=== PATIENT | male | born 1970 | race Caucasian/White ===

== ENCOUNTER 2019-01-29 11:35 | Inpatient (IN) | payer MEDICARE ==
[2019-01-29] VITALS (8 sets, daily range): BP systolic 128–150; BP diastolic 69–79
[~2019-01-29] VITALS: Ht 170.2 cm; Wt 93.0 kg
[~2019-01-29 11:35] MED LIST: CEFI200S PO; CEFI200T PO; FENO43CA PO; IBUP200T44 PO; LISI10TA2 PO; PRED5TAB PO; SILD50TA PO; [UNRECOGNIZED DRUG - CODE] MC
[2019-01-29] MEDS ORDERED: MORPHINE SULFATE 4 MG/ML VIAL. IV ONE (12:15)
[2019-01-29] MEDS ORDERED: ONDANSETRON PF 4 MG/2 ML VIAL. IV ONE (12:15)
[2019-01-29] MEDS ORDERED: IV NORMAL SALINE 500ML BAG 500 ML IV ONE (12:15)
--- NOTE | 2019-01-29 12:21 | PHYS DOC ---
Past Medical History Past Medical History: Hypertension Additional Past Medical Histor: UMBILICAL HERNIA Past Surgical History: Hip Replacement Alcohol Use: Heavy Additional Information: SOBER SINCE Drug Use: None Adult General Chief Complaint Chief Complaint: PAIN CONTROL HPI HPI Patient is a 48 year old male who presents with abdominal pain has been ongoing for 4 hours. The patient states she's had umbilical hernia that's been ongoing for over a year. However this morning his hernia was unable be compressible in. Rates his pain 7 out of 10 in severity and sharp. Patient last had something to drink or eat around 7:00 this morning when he had coffee and tea. Review of Systems Review of Systems Constitutional: Denies fever or chills [] Eyes: Denies change in visual acuity, redness, or eye pain [] HENT: Denies nasal congestion or sore throat [] Respiratory: Denies cough or shortness of breath [] Cardiovascular: No additional information not addressed in HPI [] GI: Reports abdominal pain, nausea, Denies vomiting, bloody stools or diarrhea [] : Denies dysuria or hematuria [] Musculoskeletal: Denies back pain or joint pain [] Integument: Denies rash or skin lesions [] Neurologic: Denies headache, focal weakness or sensory changes [] Endocrine: Denies polyuria or polydipsia [] Complete systems were reviewed and found to be within normal limits, except as documented in this note. Current Medications Current Medications Current Medications Medications (Trade) Dose Ordered Sig/She Start Time Stop Time Status Last Admin Dose Admin Fentanyl Citrate (Fentanyl 2ml Vial) 50 mcg PRN Q5MIN PRN 01/29/19 12:45 01/30/19 12:44 Hydromorphone HCl (Dilaudid) 0.5 mg PRN Q10MIN PRN 01/29/19 12:45 01/30/19 12:44 Lidocaine HCl (Xylocaine-Mpf 1% 2ml Vial) 2 ml PRN 1X PRN 01/29/19 12:45 01/30/19 12:44 Morphine Sulfate (Morphine Sulfate) 1 mg PRN Q10MIN PRN 01/29/19 12:45 01/30/19 12:44 Ondansetron HCl (Zofran) 4 mg PRN Q6HRS PRN 01/29/19 12:45 01/30/19 12:44 Prochlorperazine Edisylate (Compazine) 5 mg PACU PRN PRN 01/29/19 12:45 01/30/19 12:44 Ringer's Solution 1,000 ml @ 30 mls/hr Q24H 01/29/19 12:44 01/30/19 00:43 Sodium Chloride 500 ml @ 500 mls/hr 1X ONCE 01/29/19 12:15 01/29/19 13:14 01/29/19 12:24 500 MLS/HR Allergies Allergies Allergies Coded Allergies Type Severity Reaction Last Updated Verified No Known Drug Allergies 08/09/13 No Physical Exam Physical Exam Constitutional: Well developed, well nourished, appears in pain. HENT: Normocephalic, atraumatic, bilateral external ears normal, oropharynx moist, no oral exudates, nose normal. [] Eyes: PERRLA, EOMI, conjunctiva normal, no discharge. [] Neck: Normal range of motion, no tenderness, supple, no stridor. [] Cardiovascular:Heart rate regular rhythm, no murmur [] Lungs & Thorax: Bilateral breath sounds clear to auscultation [] Abdomen: Bowel sounds normal, soft, umbilical hernia that is not compressible, Skin: Warm, dry, no erythema, no rash. [] Back: No tenderness, no CVA tenderness. [] Extremities: No tenderness, no cyanosis, no clubbing, ROM intact, no edema. [] Neurologic: Alert and oriented X 3, normal motor function, normal sensory function, no focal deficits noted. [] Psychologic: Affect normal, judgement normal, mood normal. [] Current Patient Data Vital Signs Vital Signs Date Time Temp Pulse Resp B/P (MAP) Pulse Ox O2 Delivery O2 Flow Rate FiO2 01/29/19 12:43 70 16 100 01/29/19 11:43 98.1 169/87 (114) Room Air 98.1 Lab Values Laboratory Tests Test 01/29/19 12:03 White Blood Count 10.8 x10^3/uL (4.0-11.0) Red Blood Count 3.94 x10^6/uL (4.30-5.70) L Hemoglobin 13.7 g/dL (13.0-17.5) Hematocrit 39.6 % (39.0-53.0) Mean Corpuscular Volume 101 fL (79-100) H Mean Corpuscular Hemoglobin 35 pg (25-35) Mean Corpuscular Hemoglobin Concent 35 g/dL (31-37) Red Cell Distribution Width 15.0 % (11.5-14.5) H Platelet Count 150 x10^3/uL (140-400) Neutrophils (%) (Auto) 79 % (31-73) H Lymphocytes (%) (Auto) 15 % (24-48) L Monocytes (%) (Auto) 4 % (0-9) Eosinophils (%) (Auto) 2 % (0-3) Basophils (%) (Auto) 1 % (0-3) Neutrophils # (Auto) 8.5 x10^3/uL (1.8-7.7) H Lymphocytes # (Auto) 1.6 x10^3/uL (1.0-4.8) Monocytes # (Auto) 0.4 x10^3/uL (0.0-1.1) Eosinophils # (Auto) 0.2 x10^3/uL (0.0-0.7) Basophils # (Auto) 0.1 x10^3/uL (0.0-0.2) Sodium Level 140 mmol/L (136-145) Potassium Level 3.7 mmol/L (3.5-5.1) Chloride Level 104 mmol/L (98-107) Carbon Dioxide Level 25 mmol/L (21-32) Anion Gap 11 (6-14) Blood Urea Nitrogen 6 mg/dL (8-26) L Creatinine 0.8 mg/dL (0.7-1.3) Estimated GFR (Cockcroft-Gault) 103.2 BUN/Creatinine Ratio 8 (6-20) Glucose Level 112 mg/dL (70-99) H Calcium Level 9.9 mg/dL (8.5-10.1) Total Bilirubin 0.5 mg/dL (0.2-1.0) Aspartate Amino Transferase (AST) 17 U/L (15-37) Alanine Aminotransferase (ALT) 25 U/L (16-63) Alkaline Phosphatase 119 U/L (46-116) H Total Protein 7.9 g/dL (6.4-8.2) Albumin 4.3 g/dL (3.4-5.0) Albumin/Globulin Ratio 1.2 (1.0-1.7) Lipase 91 U/L (73-393) Laboratory Tests 01/29/19 12:03 Laboratory Tests 01/29/19 12:03 EKG EKG EKG interpreted by Dr. Mari Lambert with rate of 65, No STEMI.[] Radiology/Procedures Radiology/Procedures [] Course & Med Decision Making Course & Med Decision Making Pertinent Labs and Imaging studies reviewed. (See chart for details) Concern that his umbilical hernia is strangulated. Paged general surgery and ordered labs and supportive care. Discussed with Dr. Little who came to bedside to see patient and agrees that it is a strangulated hernia. He will prepare to take patient to surgery. Discussed with Dr. Ferreira who accepts admission. Labs are unremarkable. Dragon Disclaimer Dragon Disclaimer This electronic medical record was generated, in whole or in part, using a voice recognition dictation system. Departure Departure Impression: Primary Impression: Strangulated umbilical hernia Disposition: ADMITTED INPATIENT Admitting Physician: INDU Condition: STABLE Referrals: UNKNOWN PCP NAME (PCP) AMEENA ALY APRN Jan 29, 2019 12:21
[2019-01-29 12:26] LABS: BASO # 0.1 x10^3/uL (0.0-0.2); BASO % 1 % (0-3); EOS # 0.2 x10^3/uL (0.0-0.7); EOS % 2 % (0-3); HEMATOCRIT 39.6 % (39.0-53.0); HEMOGLOBIN 13.7 g/dL (13.0-17.5); LYMPH # 1.6 x10^3/uL (1.0-4.8); LYMPH % 15 % (24-48); MEAN CORPUSCULAR HEMOGLOBIN 35 pg (25-35); MEAN CORPUSCULAR HGB CONC 35 g/dL (31-37); MEAN CORPUSCULAR VOLUME 101 fL (79-100); MONO # 0.4 x10^3/uL (0.0-1.1); MONO % 4 % (0-9); NEUT # 8.5 x10^3/uL (1.8-7.7); NEUT % 79 % (31-73); PLATELET COUNT 150 x10^3/uL (140-400); RED BLOOD COUNT 3.94 x10^6/uL (4.30-5.70); WHITE BLOOD COUNT 10.8 x10^3/uL (4.0-11.0)
[2019-01-29] MEDS ORDERED: MORPHINE SULFATE 4 MG/ML VIAL. IV PRN (12:30)
[2019-01-29 12:36] LABS: CALCIUM 9.9 mg/dL (8.5-10.1); CREATININE 0.8 mg/dL (0.7-1.3); GFR 103.2; POTASSIUM 3.7 mmol/L (3.5-5.1)
[2019-01-29 12:43] LABS: ALBUMIN 4.3 g/dL (3.4-5.0); ALBUMIN/GLOBULIN RATIO 1.2 (1.0-1.7); TOTAL BILIRUBIN 0.5 mg/dL (0.2-1.0); TOTAL PROTEIN 7.9 g/dL (6.4-8.2)
[2019-01-29] MEDS ORDERED: IV RINGERS,LACTATED 1000ML 1,000 ML IV SCH (12:44)
[2019-01-29] MEDS ORDERED: HYDROmorphone 2 MG/ML VIAL IV PRN (12:45)
[2019-01-29] MEDS ORDERED: LIDOCAINE 1% PF 2 ML VIAL. ID PRN (12:45)
[2019-01-29] MEDS ORDERED: PROCHLORPERAZINE 10 MG/2 ML VIAL. IV PRN (12:45)
[2019-01-29] MEDS ORDERED: MORPHINE SULFATE 2 MG/ML VIAL. IV PRN (12:45)
[2019-01-29] MEDS ORDERED: ONDANSETRON PF 4 MG/2 ML VIAL. IV PRN (12:45)
[2019-01-29] MEDS ORDERED: fentaNYL PF VIAL 100 MCG/2 ML VIAL IV PRN ×2 (12:45)
--- NOTE | 2019-01-29 12:55 | PDOC2 ---
CONSULT Date of Consult Date of Consult DATE: 01/29/19 TIME: 12:51 Reason for Consult Reason for Consult: Abdominal pain Referring Physician Referring Physician: Hanna Identification/Chief Complaint Chief Complaint Abdominal pain and umbilical hernia Source Source: Patient History of Present Illness Reason for Visit: 48-year-old male with a umbilical hernia that's been watched for over year secondary to his alcohol abuse which is been in rehabilitation for the last year last alcoholic drink was April 2018. About 5 hours ago he developed severe abd ominal pain with nausea and a bulge at the umbilical hernia which would not reduce as it has in the past. Pain became more severe that's why came to the emergency department. Denies any fevers chills last meal was last night. He had undergone a hip surgery in October 2018 without any postoperative difficulties or anesthesia difficulties. Past Medical History Cardiovascular: HTN Pulmonary: No pertinent hx GI: No pertinent hx Heme/Onc: No pertinent hx Hepatobiliary: Cirrhosis Psych: Addictions Rheumatologic: No pertinent hx Infectious disease: No pertinent hx ENT: No pertinent hx Renal/: No pertinent hx Endocrine: No pertinent hx Dermatology: No pertinent hx Past Surgical History Past Surgical History: Other (hip surgery) Family History Family History: No Significant Social History ALCOHOL: heavy (last alcoholic drink was April 2018) Current Problem List Problem List Problems Medical Problems: (1) Strangulated umbilical hernia Status: Acute Current Medications Current Medications Current Medications Morphine Sulfate (Morphine Sulfate) 8 mg 1X ONCE IV Last administered on 01/29/19at 12:24; Start 01/29/19 at 12:15; Stop 01/29/19 at 12:16; Status DC Ondansetron HCl (Zofran) 4 mg 1X ONCE IV Last administered on 01/29/19at 12:23; Start 01/29/19 at 12:15; Stop 01/29/19 at 12:16; Status DC Sodium Chloride 500 ml @ 500 mls/hr 1X ONCE IV Last administered on 01/29/19at 12:24; Start 01/29/19 at 12:15; Stop 01/29/19 at 13:14 Morphine Sulfate (Morphine Sulfate) 4 mg PRN Q2HR PRN IV PAIN; Start 01/29/19 at 12:30; Stop 01/30/19 at 12:29 Ondansetron HCl (Zofran) 4 mg PRN Q6HRS PRN IV NAUSEA/VOMITING; Start 01/29/19 at 12:45; Stop 01/30/19 at 12:44 Fentanyl Citrate (Fentanyl 2ml Vial) 25 mcg PRN Q5MIN PRN IV MILD PAIN 1-3; Start 01/29/19 at 12:45; Stop 01/30/19 at 12:44 Fentanyl Citrate (Fentanyl 2ml Vial) 50 mcg PRN Q5MIN PRN IV MODERATE TO SEVERE PAIN; Start 01/29/19 at 12:45; Stop 01/30/19 at 12:44 Morphine Sulfate (Morphine Sulfate) 1 mg PRN Q10MIN PRN IV SEVERE PAIN 7-10; Start 01/29/19 at 12:45; Stop 01/30/19 at 12:44 Ringer's Solution 1,000 ml @ 30 mls/hr Q24H IV ; Start 01/29/19 at 12:44; Stop 01/30/19 at 00:43 Lidocaine HCl (Xylocaine-Mpf 1% 2ml Vial) 2 ml PRN 1X PRN ID PRIOR TO IV START; Start 01/29/19 at 12:45; Stop 01/30/19 at 12:44 Hydromorphone HCl (Dilaudid) 0.5 mg PRN Q10MIN PRN IV SEV PAIN, Second choice; Start 01/29/19 at 12:45; Stop 01/30/19 at 12:44 Prochlorperazine Edisylate (Compazine) 5 mg PACU PRN PRN IV NAUSEA, MRX1; Start 01/29/19 at 12:45; Stop 01/30/19 at 12:44 Active Scripts Active Reported Viagra (Sildenafil Citrate) 50 Mg Tablet 50 Mg PO Motrin Ib (Ibuprofen) 200 Mg Tablet 200 Mg PO Prednisone 5 Mg Tablet 5 Mg PO Suprax (Cefixime) 200 Mg/5 Ml Susp.recon 200 Mg PO Suprax (Cefixime) 200 Mg Tab.chew 200 Mg PO Clindamycin Hcl 100 Gm Powder 100 Gm MC Lisinopril 10 Mg Tablet 10 Mg PO Fenofibrate (Fenofibrate,Micronized) 43 Mg Capsule 43 Mg PO Allergies Allergies: Coded Allergies: No Known Drug Allergies (Unverified , 08/09/13) ROS Gastrointestinal: Yes Nausea, Yes Abdominal Pain Physical Exam General: Alert, Oriented X3, Cooperative, moderate distress HEENT: Atraumatic, PERRLA, EOMI Lungs: Clear to auscultation, Normal air movement Heart: Regular rate, No murmurs Abdomen: Soft, Other (tender to palpation around the umbilicus is a large umbilical hernia with thinning of the skin non-reducible hypoactive bowel sounds) Extremities: No edema Skin: No significant lesion Neuro: Normal speech Psych/Mental Status: Mental status NL Vitals VITALS Vital Signs Date Time Temp Pulse Resp B/P (MAP) Pulse Ox O2 Delivery O2 Flow Rate FiO2 01/29/19 12:43 70 16 100 01/29/19 11:43 98.1 169/87 (114) Room Air 98.1 Labs Labs Laboratory Tests Test 01/29/19 12:03 White Blood Count 10.8 x10^3/uL (4.0-11.0) Red Blood Count 3.94 x10^6/uL (4.30-5.70) Hemoglobin 13.7 g/dL (13.0-17.5) Hematocrit 39.6 % (39.0-53.0) Mean Corpuscular Volume 101 fL (79-100) Mean Corpuscular Hemoglobin 35 pg (25-35) Mean Corpuscular Hemoglobin Concent 35 g/dL (31-37) Red Cell Distribution Width 15.0 % (11.5-14.5) Platelet Count 150 x10^3/uL (140-400) Neutrophils (%) (Auto) 79 % (31-73) Lymphocytes (%) (Auto) 15 % (24-48) Monocytes (%) (Auto) 4 % (0-9) Eosinophils (%) (Auto) 2 % (0-3) Basophils (%) (Auto) 1 % (0-3) Neutrophils # (Auto) 8.5 x10^3/uL (1.8-7.7) Lymphocytes # (Auto) 1.6 x10^3/uL (1.0-4.8) Monocytes # (Auto) 0.4 x10^3/uL (0.0-1.1) Eosinophils # (Auto) 0.2 x10^3/uL (0.0-0.7) Basophils # (Auto) 0.1 x10^3/uL (0.0-0.2) Sodium Level 140 mmol/L (136-145) Potassium Level 3.7 mmol/L (3.5-5.1) Chloride Level 104 mmol/L (98-107) Carbon Dioxide Level 25 mmol/L (21-32) Anion Gap 11 (6-14) Blood Urea Nitrogen 6 mg/dL (8-26) Creatinine 0.8 mg/dL (0.7-1.3) Estimated GFR (Cockcroft-Gault) 103.2 BUN/Creatinine Ratio 8 (6-20) Glucose Level 112 mg/dL (70-99) Calcium Level 9.9 mg/dL (8.5-10.1) Total Bilirubin 0.5 mg/dL (0.2-1.0) Aspartate Amino Transf (AST/SGOT) 17 U/L (15-37) Alanine Aminotransferase (ALT/SGPT) 25 U/L (16-63) Alkaline Phosphatase 119 U/L (46-116) Total Protein 7.9 g/dL (6.4-8.2) Albumin 4.3 g/dL (3.4-5.0) Albumin/Globulin Ratio 1.2 (1.0-1.7) Lipase 91 U/L (73-393) Laboratory Tests Test 01/29/19 12:03 White Blood Count 10.8 x10^3/uL (4.0-11.0) Red Blood Count 3.94 x10^6/uL (4.30-5.70) Hemoglobin 13.7 g/dL (13.0-17.5) Hematocrit 39.6 % (39.0-53.0) Mean Corpuscular Volume 101 fL (79-100) Mean Corpuscular Hemoglobin 35 pg (25-35) Mean Corpuscular Hemoglobin Concent 35 g/dL (31-37) Red Cell Distribution Width 15.0 % (11.5-14.5) Platelet Count 150 x10^3/uL (140-400) Neutrophils (%) (Auto) 79 % (31-73) Lymphocytes (%) (Auto) 15 % (24-48) Monocytes (%) (Auto) 4 % (0-9) Eosinophils (%) (Auto) 2 % (0-3) Basophils (%) (Auto) 1 % (0-3) Neutrophils # (Auto) 8.5 x10^3/uL (1.8-7.7) Lymphocytes # (Auto) 1.6 x10^3/uL (1.0-4.8) Monocytes # (Auto) 0.4 x10^3/uL (0.0-1.1) Eosinophils # (Auto) 0.2 x10^3/uL (0.0-0.7) Basophils # (Auto) 0.1 x10^3/uL (0.0-0.2) Sodium Level 140 mmol/L (136-145) Potassium Level 3.7 mmol/L (3.5-5.1) Chloride Level 104 mmol/L (98-107) Carbon Dioxide Level 25 mmol/L (21-32) Anion Gap 11 (6-14) Blood Urea Nitrogen 6 mg/dL (8-26) Creatinine 0.8 mg/dL (0.7-1.3) Estimated GFR (Cockcroft-Gault) 103.2 BUN/Creatinine Ratio 8 (6-20) Glucose Level 112 mg/dL (70-99) Calcium Level 9.9 mg/dL (8.5-10.1) Total Bilirubin 0.5 mg/dL (0.2-1.0) Aspartate Amino Transf (AST/SGOT) 17 U/L (15-37) Alanine Aminotransferase (ALT/SGPT) 25 U/L (16-63) Alkaline Phosphatase 119 U/L (46-116) Total Protein 7.9 g/dL (6.4-8.2) Albumin 4.3 g/dL (3.4-5.0) Albumin/Globulin Ratio 1.2 (1.0-1.7) Lipase 91 U/L (73-393) Assessment/Plan Assessment/Plan Incarcerated strangulated umbilical hernia plan umbilical hernia repair possible small bowel resection BRUNILDA MANCIA MD Jan 29, 2019 12:55
--- NOTE | 2019-01-29 12:56 | EKG ---
[facility] [address] [place] [address] Test Date: 2019-01-29 Test Time: 12:37:08 Pat Name: EVELYN BAUER Department: Room: Gender: M Erp Pm: : 1970 Requested By: AMEENA ALY Order Number: [id number] Reading MD: Mark Dumas MD Measurements Intervals [place] Rate: 65 P: 47 FL: 150 QRS: 37 QRSD: 84 T: 49 QT: 390 QTc: 406 Interpretive Statements SINUS RHYTHM Electronically Signed On 02-05-2019 11:33:50 CDT by Mark Dumas MD
[2019-01-29] MEDS ORDERED: fentaNYL PF VIAL 100 MCG/2 ML VIAL ONE (12:58)
[2019-01-29] MEDS ORDERED: fentaNYL PF VIAL 100 MCG/2 ML VIAL IVP ONE (13:15)
[2019-01-29] MEDS ORDERED: ESMOLOL 100 MG/10 ML VIAL. IVP ONE (13:31)
[2019-01-29] MEDS ORDERED: KETOROLAC 30 MG/ML VIAL. ONE (13:45)
[2019-01-29] MEDS ORDERED: BUPIVACAINE-EPI 0.25%-1:200000 MPF 30 ML VIAL. INJ ONE (13:45)
[2019-01-29] MEDS ORDERED: PROPOFOL 20 ML IV ONE (13:45)
[2019-01-29] MEDS ORDERED: LIDOCAINE 2% PF 5 ML VIAL. ONE ×2 (13:45→14:09)
[2019-01-29] MEDS ORDERED: SEVOFLURANE 31 TO 60 MINUTES. IH ONE (13:45)
[2019-01-29] MEDS ORDERED: DEXAMETHASONE SOD PHOS 4 MG/ML VIAL ONE (13:46)
[2019-01-29] MEDS ORDERED: ONDANSETRON PF 4 MG/2 ML VIAL. ONE (13:46)
[2019-01-29] MEDS ORDERED: GLYCOPYRROLATE 1 MG/5 ML VIAL. ONE (13:47)
[2019-01-29] MEDS ORDERED: NEOSTIGMINE METHYLSULFATE 5 MG/5 ML SYRINGE. ONE (13:47)
[2019-01-29] MEDS ORDERED: SUGAMMADEX SODIUM 200 MG/2 ML VIAL. IVP ONE (14:00)
--- NOTE | 2019-01-29 14:07 | PDOC4 ---
Operative Note Operative Note Date: 01/29/2019 Preoperative diagnosis: Strangulated umbilical hernia Postoperative diagnosis: Same Procedure: Umbilical hernia repair with mesh Surgeon: Sidney Specimen: Umbilical hernia sac Dictation: Patient is 48-year-old male was seen in emergency department with large umbilical hernia severe pain unreducible. The patient has had umbilical hernia for several years had not had any surgery on a due to his alcohol abuse but has been recently and rehabilitation and has been sober since April 2018. Procedure of umbilical hernia repair with mesh possible small bowel resection was explained to the patient in detail all risks benefits were also discussed including bleeding infection injury to intra-abdominal contents possibly necessitating further or larger operations alternatives to this procedure also discussed with the patient who seemed to understand and gave both verbal and written consent to have the procedure performed. Patient was taken to the operating room placed in supine position general anesthesia was initiated once patient was completely sedated and just prior to intubation his hernia reduced spontaneously patient was then intubated and his abdomen was prepped and draped usual sterile fashion using ChloraPrep. A midline incision was made from just above the umbilicus through the umbilicus to just below the umbilicus was carried down through the subcutaneous tissue using electrocautery divided hemostasis. The hernia defect was visualized fashion of the hernia sac was then excised using electrocautery. Small bowel was brought up through the fascial defect and inspected and appeared to be pink and viable no evidence of any long- term injury to the small bowel. The fascial defect was then closed with a running oh looped PDS a phasic mesh overlay was placed over the repair sewn in place with a running 3-0 Vicryl deep subcutaneous layers closed running 3-0 Vicryl and the skin was approximate for septic and a Monocryl Mastisol Steri- Strips and island dressing was applied patient was awakened and bated operating room taken to recovery in stable condition all sponge instrument needle counts listed as correct estimated blood loss 5 mL. BRUNILDA MANCIA MD Jan 29, 2019 14:07
[2019-01-29] MEDS ORDERED: oxyCODONE/APAP 5/325 1 TAB TABLET PO PRN (14:15)
[2019-01-29] MEDS ORDERED: FLU VAX QS 2019-20 (36MOS+)/PF 0.5 ML SYRINGE. VAX IM ONE (17:00)
[2019-01-29] MEDS ORDERED: ARIP10TA9 PO (17:34)
[2019-01-29] MEDS ORDERED: ATORVASTATIN CA80 MG PO (17:34)
[2019-01-29] MEDS ORDERED: HYDR25TA PO (17:35)
[2019-01-29] MEDS ORDERED: LISI10TA2 PO (17:35)
[2019-01-29] MEDS: oxyCODONE/APAP 5/325 1 TAB TABLET PO PRN (19:58)
--- NOTE | 2019-01-29 20:17 | HP ---
ADMIT DATE: 01/29/2019 CHIEF COMPLAINT: Abdominal pain. HISTORY OF PRESENT ILLNESS: The patient is a pleasant middle-aged male, who presented to the ER with an incarcerated hernia. The ER doctor called me, we have admitted the patient, he was just taken emergently for surgery. He is now being examined on the medical floor. PAST MEDICAL HISTORY: Alcoholism, but he quit a year ago; hypertension; umbilical hernia; hip replacement recently. ALLERGIES: None. FAMILY HISTORY: Alcoholism. SOCIAL HISTORY: He quit drinking, no smoking or drugs. He is disabled. MEDICATIONS: Reviewed, please refer to the MRAD. REVIEW OF SYSTEMS: GENERAL: No history of weight change, weakness or fevers. SKIN: No bruising, hair changes or rashes. EYES: No blurred, double or loss of vision. NOSE AND THROAT: No history of nosebleeds, hoarseness or sore throat. HEART: No history of palpitations, chest pain or shortness of breath on exertion. LUNGS: Denies cough, hemoptysis, wheezing or shortness of breath. GASTROINTESTINAL: Denies changes in appetite, nausea, vomiting, diarrhea or constipation. GENITOURINARY: No history of frequency, urgency, hesitancy or nocturia. NEUROLOGIC: Denies history of numbness, tingling, tremor or weakness. PSYCHIATRIC: No history of panic, anxiety or depression. ENDOCRINE: No history of heat or cold intolerance, polyuria or polydipsia. EXTREMITIES: Denies muscle weakness, joint pain, pain on walking or stiffness. PHYSICAL EXAMINATION: VITALS: Within normal limits and are stable. GENERAL: No apparent distress. Alert and oriented. HEENT: Head is normocephalic, atraumatic, pupils were equally round and reactive to light and accommodation. NECK: Supple, no JVD, no thyromegaly was noted. LUNGS: Clear to auscultation in all lung courtney without rhonchi or wheezing. HEART: RRR, S1, S2 present. Peripheral pulses intact, no obvious murmurs were noted. ABDOMEN: He has clean, dry, intact dressing. EXTREMITIES: Without any cyanosis, clubbing, or edema. Pedal pulses intact, Homans sign is negative. NEUROLOGIC: Normal speech, normal tone. A & O x3, moves all extremities, no obvious focal deficits. PSYCHIATRIC: Normal affect, normal mood. Stable. SKIN: No ulcerations or rashes, good skin turgor, no jaundice. VASCULAR: Good capillary refill, neurovascular bundle appears to be intact. LABORATORY DATA: Electrolytes are normal. Hematology is normal. ASSESSMENT AND PLAN: Postop emergent correction of incarcerated umbilical hernia. The patient has been admitted. We are doing wound care. We will slowly advance his diet. DVT prophylaxis. IV fluids, p.r.n. morphine, home meds. ADITYA HAMILTON DO DR: BERHANE/tarik JOB#: [id number] / [id number]
[2019-01-30 03:00] VITALS: BP 155/77
[2019-01-30] MEDS: oxyCODONE/APAP 5/325 1 TAB TABLET PO PRN ×3 (03:49→13:02)
[2019-01-30 07:00] VITALS: BP 137/68
[2019-01-30] MEDS ORDERED: hydrOXYzine 25 MG TABLET PO PRN (08:30)
[2019-01-30] MEDS ORDERED: LISINOPRIL 10 MG TABLET PO SCH (09:00)
[2019-01-30] MEDS ORDERED: ARIPiprazole 5 MG TABLET PO SCH (09:00)
[2019-01-30] MEDS ORDERED: IBUPROFEN 200 MG TABLET. PO SCH (09:00)
[2019-01-30] MEDS ORDERED: OXYC1TAB15 PO (09:12)
--- NOTE | 2019-01-30 09:15 | PDOC3 ---
Discharge Summary Visit Information Date of Admission: Jan 29, 2019 Date of Discharge: Jan 30, 2019 Admitting Diagnosis Comment: strangulated hernia with repair of umbilical hernia Final Diagnosis Problems Medical Problems: (1) Strangulated umbilical hernia Status: Acute Brief Hospital Course Allergies Allergies Coded Allergies Type Severity Reaction Last Updated Verified prednisone Allergy Unknown 01/29/19 Yes Vital Signs Vital Signs Date Time Temp Pulse Resp B/P (MAP) Pulse Ox O2 Delivery O2 Flow Rate FiO2 01/30/19 08:41 Room Air 01/30/19 07:00 97.9 89 18 137/68 (91) 95 97.9 01/29/19 14:35 10 Lab Results Laboratory Tests Test 01/29/19 12:03 White Blood Count 10.8 x10^3/uL (4.0-11.0) Red Blood Count 3.94 x10^6/uL (4.30-5.70) Hemoglobin 13.7 g/dL (13.0-17.5) Hematocrit 39.6 % (39.0-53.0) Mean Corpuscular Volume 101 fL (79-100) Mean Corpuscular Hemoglobin 35 pg (25-35) Mean Corpuscular Hemoglobin Concent 35 g/dL (31-37) Red Cell Distribution Width 15.0 % (11.5-14.5) Platelet Count 150 x10^3/uL (140-400) Neutrophils (%) (Auto) 79 % (31-73) Lymphocytes (%) (Auto) 15 % (24-48) Monocytes (%) (Auto) 4 % (0-9) Eosinophils (%) (Auto) 2 % (0-3) Basophils (%) (Auto) 1 % (0-3) Neutrophils # (Auto) 8.5 x10^3/uL (1.8-7.7) Lymphocytes # (Auto) 1.6 x10^3/uL (1.0-4.8) Monocytes # (Auto) 0.4 x10^3/uL (0.0-1.1) Eosinophils # (Auto) 0.2 x10^3/uL (0.0-0.7) Basophils # (Auto) 0.1 x10^3/uL (0.0-0.2) Sodium Level 140 mmol/L (136-145) Potassium Level 3.7 mmol/L (3.5-5.1) Chloride Level 104 mmol/L (98-107) Carbon Dioxide Level 25 mmol/L (21-32) Anion Gap 11 (6-14) Blood Urea Nitrogen 6 mg/dL (8-26) Creatinine 0.8 mg/dL (0.7-1.3) Estimated GFR (Cockcroft-Gault) 103.2 BUN/Creatinine Ratio 8 (6-20) Glucose Level 112 mg/dL (70-99) Calcium Level 9.9 mg/dL (8.5-10.1) Total Bilirubin 0.5 mg/dL (0.2-1.0) Aspartate Amino Transf (AST/SGOT) 17 U/L (15-37) Alanine Aminotransferase (ALT/SGPT) 25 U/L (16-63) Alkaline Phosphatase 119 U/L (46-116) Total Protein 7.9 g/dL (6.4-8.2) Albumin 4.3 g/dL (3.4-5.0) Albumin/Globulin Ratio 1.2 (1.0-1.7) Lipase 91 U/L (73-393) Laboratory Tests Test 01/29/19 12:03 White Blood Count 10.8 x10^3/uL (4.0-11.0) Red Blood Count 3.94 x10^6/uL (4.30-5.70) Hemoglobin 13.7 g/dL (13.0-17.5) Hematocrit 39.6 % (39.0-53.0) Mean Corpuscular Volume 101 fL (79-100) Mean Corpuscular Hemoglobin 35 pg (25-35) Mean Corpuscular Hemoglobin Concent 35 g/dL (31-37) Red Cell Distribution Width 15.0 % (11.5-14.5) Platelet Count 150 x10^3/uL (140-400) Neutrophils (%) (Auto) 79 % (31-73) Lymphocytes (%) (Auto) 15 % (24-48) Monocytes (%) (Auto) 4 % (0-9) Eosinophils (%) (Auto) 2 % (0-3) Basophils (%) (Auto) 1 % (0-3) Neutrophils # (Auto) 8.5 x10^3/uL (1.8-7.7) Lymphocytes # (Auto) 1.6 x10^3/uL (1.0-4.8) Monocytes # (Auto) 0.4 x10^3/uL (0.0-1.1) Eosinophils # (Auto) 0.2 x10^3/uL (0.0-0.7) Basophils # (Auto) 0.1 x10^3/uL (0.0-0.2) Sodium Level 140 mmol/L (136-145) Potassium Level 3.7 mmol/L (3.5-5.1) Chloride Level 104 mmol/L (98-107) Carbon Dioxide Level 25 mmol/L (21-32) Anion Gap 11 (6-14) Blood Urea Nitrogen 6 mg/dL (8-26) Creatinine 0.8 mg/dL (0.7-1.3) Estimated GFR (Cockcroft-Gault) 103.2 BUN/Creatinine Ratio 8 (6-20) Glucose Level 112 mg/dL (70-99) Calcium Level 9.9 mg/dL (8.5-10.1) Total Bilirubin 0.5 mg/dL (0.2-1.0) Aspartate Amino Transf (AST/SGOT) 17 U/L (15-37) Alanine Aminotransferase (ALT/SGPT) 25 U/L (16-63) Alkaline Phosphatase 119 U/L (46-116) Total Protein 7.9 g/dL (6.4-8.2) Albumin 4.3 g/dL (3.4-5.0) Albumin/Globulin Ratio 1.2 (1.0-1.7) Lipase 91 U/L (73-393) Brief Hospital Course Mr. 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 so was a poor surgical candidate, lately pain being less tolerable, went to ER and strangulated hernia and underwent stat OR, I see post op, doing very well, tolerating PO, ambulating, LAbs ok, HOme later today if GS ok, Rx on chart 2 week ff up GS Discharge Information Condition at Discharge: Improved, Stable Follow Up: Weeks (2 weeks ) Disposition/Orders: D/C to Home Scheduled Aripiprazole (Abilify) 10 Mg Tablet, 10 MG PO DAILY for anxiety, (Reported) Entered as Reported by: TOM HALL RN on 01/29/191733 Last Action: Converted on 01/30/19817 by CIARRA MENDOZA Atorvastatin Calcium (Atorvastatin Calcium) 80 Mg Tablet, 1 TAB PO DAILY for HTN, #30 Ref 5 (Reported) Entered as Reported by: TOM HALL RN on 01/29/191733 Last Action: Converted on 01/30/19817 by CIARRA MENDOZA Lisinopril (Lisinopril) 10 Mg Tablet, 1 TAB PO DAILY for HTN, #30 Ref 5 (Reported) Entered as Reported by: TOM HALL RN on 01/29/191734 Last Action: Continued on 01/30/19817 by CIARRA MENDOZA Scheduled PRN Hydroxyzine Hcl (Hydroxyzine Hcl) 25 Mg Tablet, 1 TAB PO PRN BID PRN for ANXIETY / AGITATION, #60 (Reported) Entered as Reported by: TOM HALL RN on 01/29/191734 Last Action: Continued on 01/30/19817 by CIARRA MENDOZA Oxycodone/Apap 5-325 (Percocet 5-325 Mg Tablet ) 1 Each Tablet, 1 TAB PO PRN Q4HRS PRN for MILD PAIN 1-3, #20 Prescribed by: CIARRA MENDOZA on 01/30/19911 Miscellaneous Medications Cefixime (Suprax) 200 Mg Tab.chew, 200 MG PO, (Reported) Entered as Reported by: LONI CASSIDY on 08/09/132220 Last Action: HELD on 01/30/19817 by CIARRA MENDOZA Cefixime (Suprax) 200 Mg/5 Ml Susp.recon, 200 MG PO, (Reported) Entered as Reported by: LONI CASSIDY on 08/09/132220 Last Action: HELD on 01/30/19817 by CIARRA MENDOZA Clindamycin Hcl (Clindamycin Hcl) 100 Gm Powder, 100 GM MC, (Reported) Entered as Reported by: LONI CASSIDY on 08/09/132220 Last Action: HELD on 01/30/19817 by CIARRA MENDOZA Fenofibrate,Micronized (Fenofibrate) 43 Mg Capsule, 43 MG PO, (Reported) Entered as Reported by: LONI CASSIDY on 08/09/132220 Ibuprofen (Motrin Ib) 200 Mg Tablet, 200 MG PO, (Reported) Entered as Reported by: LONI CASSIDY on 08/09/132220 Last Action: Continued on 01/30/19817 by CIARRA MENDOZA Lisinopril (Lisinopril) 10 Mg Tablet, 10 MG PO, (Reported) Entered as Reported by: LONI CASSIDY on 08/09/132220 Last Action: HELD on 01/30/19817 by CIARRA MENDOZA Prednisone (Prednisone) 5 Mg Tablet, 5 MG PO, (Reported) Entered as Reported by: LONI CASSIDY on 08/09/132220 Last Action: HELD on 01/30/19817 by CIARRA MENDOZA Sildenafil Citrate (Viagra) 50 Mg Tablet, 50 MG PO, (Reported) Entered as Reported by: LONI CASSIDY on 08/09/132220 Last Action: Reviewed on 01/30/19817 by CIARRA GIRON MD Jan 30, 2019 09:15
[2019-01-30 09:43] LABS: BASO % 0 % (0-3); EOS % 0 % (0-3); HEMATOCRIT 33.5 % (39.0-53.0); HEMOGLOBIN 11.4 g/dL (13.0-17.5); LYMPH # 1.4 x10^3/uL (1.0-4.8); LYMPH % 12 % (24-48); MEAN CORPUSCULAR HEMOGLOBIN 35 pg (25-35); MEAN CORPUSCULAR HGB CONC 34 g/dL (31-37); MEAN CORPUSCULAR VOLUME 101 fL (79-100); MONO # 0.5 x10^3/uL (0.0-1.1); MONO % 4 % (0-9); NEUT # 9.9 x10^3/uL (1.8-7.7); NEUT % 84 % (31-73); PLATELET COUNT 107 x10^3/uL (140-400); RED BLOOD COUNT 3.32 x10^6/uL (4.30-5.70); RED CELL DISTRIBUTION WIDTH 14.6 % (11.5-14.5); WHITE BLOOD COUNT 11.8 x10^3/uL (4.0-11.0)
[2019-01-30 10:06] LABS: CALCIUM 8.9 mg/dL (8.5-10.1); CREATININE 0.9 mg/dL (0.7-1.3); GFR 90.1; POTASSIUM 3.7 mmol/L (3.5-5.1)
[2019-01-30 11:00] VITALS: BP 131/67
--- NOTE | 2019-01-30 12:01 | PDOC ---
SURGICAL PROGRESS NOTE Subjective patient doing well, tolerating regular diet Vital Signs Vital Signs Date Time Temp Pulse Resp B/P (MAP) Pulse Ox O2 Delivery O2 Flow Rate FiO2 01/30/19 11:00 98.2 70 18 131/67 (88) 99 Room Air 98.2 01/29/19 14:35 10 I&O Intake and Output 01/30/19 07:00 Intake Total 3890 ml Output Total 655 ml Balance 3235 ml Intake Oral 840 ml IV Total 2350 ml Other 700 ml Output Urine Total 650 ml Estimated Blood Loss 5 ml # Voids 1 PATIENT HAS A DAVIS: No General: Alert, Oriented X3, Cooperative, mild distress Abdomen: Normal bowel sounds, Soft, Other (mild incisional tenderness wound c/d/i) Labs Laboratory Tests Test 01/29/19 12:03 01/30/19 09:05 White Blood Count 10.8 x10^3/uL (4.0-11.0) 11.8 x10^3/uL (4.0-11.0) Red Blood Count 3.94 x10^6/uL (4.30-5.70) 3.32 x10^6/uL (4.30-5.70) Hemoglobin 13.7 g/dL (13.0-17.5) 11.4 g/dL (13.0-17.5) Hematocrit 39.6 % (39.0-53.0) 33.5 % (39.0-53.0) Mean Corpuscular Volume 101 fL (79-100) 101 fL (79-100) Mean Corpuscular Hemoglobin 35 pg (25-35) 35 pg (25-35) Mean Corpuscular Hemoglobin Concent 35 g/dL (31-37) 34 g/dL (31-37) Red Cell Distribution Width 15.0 % (11.5-14.5) 14.6 % (11.5-14.5) Platelet Count 150 x10^3/uL (140-400) 107 x10^3/uL (140-400) Neutrophils (%) (Auto) 79 % (31-73) 84 % (31-73) Lymphocytes (%) (Auto) 15 % (24-48) 12 % (24-48) Monocytes (%) (Auto) 4 % (0-9) 4 % (0-9) Eosinophils (%) (Auto) 2 % (0-3) 0 % (0-3) Basophils (%) (Auto) 1 % (0-3) 0 % (0-3) Neutrophils # (Auto) 8.5 x10^3/uL (1.8-7.7) 9.9 x10^3/uL (1.8-7.7) Lymphocytes # (Auto) 1.6 x10^3/uL (1.0-4.8) 1.4 x10^3/uL (1.0-4.8) Monocytes # (Auto) 0.4 x10^3/uL (0.0-1.1) 0.5 x10^3/uL (0.0-1.1) Eosinophils # (Auto) 0.2 x10^3/uL (0.0-0.7) 0.0 x10^3/uL (0.0-0.7) Basophils # (Auto) 0.1 x10^3/uL (0.0-0.2) 0.0 x10^3/uL (0.0-0.2) Sodium Level 140 mmol/L (136-145) 140 mmol/L (136-145) Potassium Level 3.7 mmol/L (3.5-5.1) 3.7 mmol/L (3.5-5.1) Chloride Level 104 mmol/L (98-107) 107 mmol/L (98-107) Carbon Dioxide Level 25 mmol/L (21-32) 26 mmol/L (21-32) Anion Gap 11 (6-14) 7 (6-14) Blood Urea Nitrogen 6 mg/dL (8-26) 9 mg/dL (8-26) Creatinine 0.8 mg/dL (0.7-1.3) 0.9 mg/dL (0.7-1.3) Estimated GFR (Cockcroft-Gault) 103.2 90.1 BUN/Creatinine Ratio 8 (6-20) Glucose Level 112 mg/dL (70-99) 155 mg/dL (70-99) Calcium Level 9.9 mg/dL (8.5-10.1) 8.9 mg/dL (8.5-10.1) Total Bilirubin 0.5 mg/dL (0.2-1.0) Aspartate Amino Transf (AST/SGOT) 17 U/L (15-37) Alanine Aminotransferase (ALT/SGPT) 25 U/L (16-63) Alkaline Phosphatase 119 U/L (46-116) Total Protein 7.9 g/dL (6.4-8.2) Albumin 4.3 g/dL (3.4-5.0) Albumin/Globulin Ratio 1.2 (1.0-1.7) Lipase 91 U/L (73-393) Laboratory Tests Test 01/29/19 12:03 01/30/19 09:05 White Blood Count 10.8 x10^3/uL (4.0-11.0) 11.8 x10^3/uL (4.0-11.0) Red Blood Count 3.94 x10^6/uL (4.30-5.70) 3.32 x10^6/uL (4.30-5.70) Hemoglobin 13.7 g/dL (13.0-17.5) 11.4 g/dL (13.0-17.5) Hematocrit 39.6 % (39.0-53.0) 33.5 % (39.0-53.0) Mean Corpuscular Volume 101 fL (79-100) 101 fL (79-100) Mean Corpuscular Hemoglobin 35 pg (25-35) 35 pg (25-35) Mean Corpuscular Hemoglobin Concent 35 g/dL (31-37) 34 g/dL (31-37) Red Cell Distribution Width 15.0 % (11.5-14.5) 14.6 % (11.5-14.5) Platelet Count 150 x10^3/uL (140-400) 107 x10^3/uL (140-400) Neutrophils (%) (Auto) 79 % (31-73) 84 % (31-73) Lymphocytes (%) (Auto) 15 % (24-48) 12 % (24-48) Monocytes (%) (Auto) 4 % (0-9) 4 % (0-9) Eosinophils (%) (Auto) 2 % (0-3) 0 % (0-3) Basophils (%) (Auto) 1 % (0-3) 0 % (0-3) Neutrophils # (Auto) 8.5 x10^3/uL (1.8-7.7) 9.9 x10^3/uL (1.8-7.7) Lymphocytes # (Auto) 1.6 x10^3/uL (1.0-4.8) 1.4 x10^3/uL (1.0-4.8) Monocytes # (Auto) 0.4 x10^3/uL (0.0-1.1) 0.5 x10^3/uL (0.0-1.1) Eosinophils # (Auto) 0.2 x10^3/uL (0.0-0.7) 0.0 x10^3/uL (0.0-0.7) Basophils # (Auto) 0.1 x10^3/uL (0.0-0.2) 0.0 x10^3/uL (0.0-0.2) Sodium Level 140 mmol/L (136-145) 140 mmol/L (136-145) Potassium Level 3.7 mmol/L (3.5-5.1) 3.7 mmol/L (3.5-5.1) Chloride Level 104 mmol/L (98-107) 107 mmol/L (98-107) Carbon Dioxide Level 25 mmol/L (21-32) 26 mmol/L (21-32) Anion Gap 11 (6-14) 7 (6-14) Blood Urea Nitrogen 6 mg/dL (8-26) 9 mg/dL (8-26) Creatinine 0.8 mg/dL (0.7-1.3) 0.9 mg/dL (0.7-1.3) Estimated GFR (Cockcroft-Gault) 103.2 90.1 BUN/Creatinine Ratio 8 (6-20) Glucose Level 112 mg/dL (70-99) 155 mg/dL (70-99) Calcium Level 9.9 mg/dL (8.5-10.1) 8.9 mg/dL (8.5-10.1) Total Bilirubin 0.5 mg/dL (0.2-1.0) Aspartate Amino Transf (AST/SGOT) 17 U/L (15-37) Alanine Aminotransferase (ALT/SGPT) 25 U/L (16-63) Alkaline Phosphatase 119 U/L (46-116) Total Protein 7.9 g/dL (6.4-8.2) Albumin 4.3 g/dL (3.4-5.0) Albumin/Globulin Ratio 1.2 (1.0-1.7) Lipase 91 U/L (73-393) Problem List Problems Medical Problems: (1) Strangulated umbilical hernia Status: Acute Assessment/Plan S/P umbilical hernia repair from strangulated hernis Doing well OK to D/C home BRUNILDA MANCIA MD Jan 30, 2019 12:01
--- NOTE | 2019-01-30 13:05 | NUR ---
SS following up with discharge planning. SS reviewed pt chart. Pt is from home and is currently on room air. Discharge order on the chart for home with self care.
--- NOTE | 2019-01-30 13:58 | NUR ---
Pt discharged home with self care. Discharge instructions and prescriptions discussed. Pt verbalized understanding. IV removed. Pt assisted to wheelchair and was taken to main entrance and secured in vehicle with .
[2019-01-30] MEDS ORDERED: ATORVASTATIN CALCIUM 40 MG TABLET. PO SCH (21:00)
--- NOTE | 2019-02-01 08:07 | PATHOLOGY ---
[facility] Accession Number: [id number] . 01 Material submitted: . hernia - HERNIA SAC AND SKIN . 01 Clinical history: . Strangulated umbilical hernia . 02 Diagnosis: Segments of skin and focal mesothelial-lined fibromembranous and fibroadipose tissue, umbilical hernia repair: - Hernia sac showing focal reactive mesothelial hyperplasia and chronic inflammation. 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 02 Electronically signed: . Thoams Murphy MD, Pathologist NPI- [id number] . 01 Gross description: . The specimen is received in formalin, labeled "Hackmann, Kelvin, hernia sac and skin" and consists of 2 segments of yellow orange adipose tissue with attached pink fontenot membranous tissue measuring 4.5 x 3.5 x 1.0 cm. Sectioning reveals no gross lesions. Also received is an elliptical unremarkable segment of kelly skin measuring 5.8 x 2.9 cm excised to a depth of 0.9 cm. Hand Miter Operator sections are submitted in A1. (SDY; 01/30/2019) SYU/SYU 01/30/2019 1615 Local . 02 Pathologist provided ICD-10: K44.9 . 02 CPT . 022230 Specimen Comment: A courtesy copy of this report has been sent to Specimen Comment: [phone], . Specimen Comment: Report sent to / DR HAMILTON Performed at: 01 [facility] [address], [place] [id number] MD Villa Cornelius MD Phone: [phone] Performed at: 02 [facility] [address] [place], [place] [id number] MD Thomas Murphy MD Phone: [phone]
== END 2019-01-30 14:02 | disposition home or self-care (01) | DRG 355 ==
LOC: ER 11:35 → 4 NORTH 12:29 → ER 12:54 → 4 NORTH 12:54
PROVIDERS: ADMIT Internal Medicine; ATTEND Internal Medicine
PROC: 0WUF0JZ Supplement Abdominal Wall with Synthetic Substitute, Open Approach (ICD-10-PCS; principal; 2019-01-29 13:00)
DX: K42.0 Umbilical hernia with obstruction, without gangrene (principal); I10 Essential (primary) hypertension; Z96.649 Presence of unspecified artificial hip joint; K74.60 Unspecified cirrhosis of liver; Z81.1 Family history of alcohol abuse and dependence; Z88.0 Allergy status to penicillin
CPT/HCPCS: 36415; 80048; 80053; 83690; 85025; 88302; 90471; 90686; 93005; 96374; 96375; A7015; C1769; C1781; J0696; J1100; J1885; J2001; J2270; J2405; J2704; J2710; J3010; J3490; J7040; J7120; 99285-25; G0378